=== PATIENT | female | born 1965 | race African-American/Black ===

== ENCOUNTER 2023-12-23 11:12 | Inpatient (IN) | payer SELFPAY ==
[2023-12-23 17:25] VITALS: BMI 43.5
[2023-12-23] MEDS ORDERED: Calcium Carbonate 500 MG ChewTAB PO PRN (17:27)
[2023-12-23] MEDS ORDERED: Acetaminophen 325 MG TAB PO PRN (17:27)
[2023-12-23] MEDS ORDERED: Ondansetron PF 4 MG/2 ML Vial IVP PRN (17:27)
[2023-12-23] MEDS ORDERED: Ondansetron ODT 4 MG TAB PO PRN (17:27)
[2023-12-23 19:43] LABS: Anion Gap 8 mmol/L (10-20); BUN (Urea Nitrogen) 17 mg/dL (9.8-20.1); Calc. Creatinine Clearance 97 mL/min (70-130); Calcium 9.4 mg/dL (7.8-10.44); Carbon Dioxide 23 mmol/L (22-29); Chloride 104 mmol/L (98-107); Estimated GFR 57; Glucose 153 mg/dL (70-105); Magnesium 1.5 mg/dL (1.6-2.6); Potassium 3.2 mmol/L (3.5-5.1); Sodium 132 mmol/L (136-145)
[2023-12-23] MEDS ORDERED: NS 0.9% w/ 20 MEQ KCL 1,000 ML/1,000 ML BAG IV SCH (19:45)
[2023-12-23 19:51] LABS: Troponin I Less than 0.010 ng/mL (< 0.028)
[2023-12-23] MEDS ORDERED: Electrolyte Replacement Protocol 1 EACH FS SCH (20:15)
[2023-12-23] MEDS ORDERED: Dextrose 50% Abboject 50 ML SYRINGE SLOW IVP PRN (20:17)
[2023-12-23] MEDS ORDERED: Glucagon 1 MG/ML KIT IM PRN (20:17)
[2023-12-23] MEDS ORDERED: Insulin Regular, Human 100 UNIT/ML 10 ML VIAL SC PRN (20:17)
[2023-12-23] MEDS ORDERED: Dextrose 5% in Water 1,000 ML IV PRN (20:17)
[2023-12-23] MEDS: Famotidine 20 MG TAB PO SCH (21:02)
[2023-12-23] MEDS: Atorvastatin Calcium 40 MG TAB PO SCH (21:02)
[2023-12-23] MEDS: Potassium Chloride 20 MEQ TAB PO SCH (21:02)
[2023-12-23] MEDS: Magnesium 2 GM/50 ML(in water) 2 GM in Premix 1 BAG IVPB SCH (21:03)
[2023-12-24 05:09] LABS: Troponin I Less than 0.010 ng/mL (< 0.028)
[2023-12-24 05:55] LABS: Anion Gap 15 mmol/L (10-20); BUN (Urea Nitrogen) 20 mg/dL (9.8-20.1); Calc. Creatinine Clearance 119 mL/min (70-130); Calcium 8.8 mg/dL (7.8-10.44); Carbon Dioxide 22 mmol/L (22-29); Cardiac Risk 4.1 (Less than 4.5); Chloride 107 mmol/L (98-107); Cholesterol 132 mg/dl (< 200 Desired); Estimated GFR 72; Glucose 149 mg/dL (70-105); HDL Cholesterol 32 mg/dL (>60 Neg Risk); Hemoglobin A1c 6.3 % (4.0-6.0); LDL Cholesterol, Calculated 71 mg/dL; Magnesium 1.7 mg/dL (1.6-2.6); Potassium 4.2 mmol/L (3.5-5.1); Sodium 140 mmol/L (136-145); Triglycerides 147 mg/dL (Less than 150)
[2023-12-24] MEDS: Metoprolol Tartrate 25 MG TAB PO SCH (08:37)
[2023-12-24] MEDS: Magnesium 2 GM/50 ML(in water) 2 GM in Premix 1 BAG IVPB SCH (08:37)
[2023-12-24] MEDS: Aspirin 81 mg Enteric Coated Tablet PO SCH (08:37)
[2023-12-24] MEDS: Enoxaparin 40 MG (0.4 mL) SYRINGE SC SCH (08:38)
[2023-12-25] MEDS: hydrALAZINE 20 MG/ML VIAL SLOW IVP SCH (05:09)
[2023-12-25] MEDS: Insulin Regular, Human 100 UNIT/ML 10 ML VIAL SC PRN (11:03)
[2023-12-26] MEDS: hydrALAZINE 20 MG/ML VIAL SLOW IVP PRN (01:15)
[2023-12-26 11:49] VITALS: BP 167/81; TEMP 98.2
== END 2023-12-26 15:20 | disposition home or self-care (01) | DRG 69 ==
LOC: 2SE 11:12 → OBSVTOIN 12-26 08:49
PROVIDERS: ADMIT Internal Medicine; ATTEND Internal Medicine
DX: G45.9 Transient cerebral ischemic attack, unspecified (principal); E87.1 Hypo-osmolality and hyponatremia; R47.81 Slurred speech; I10 Essential (primary) hypertension; E11.9 Type 2 diabetes mellitus without complications; F17.210 Nicotine dependence, cigarettes, uncomplicated; I47.9 Paroxysmal tachycardia, unspecified; E83.42 Hypomagnesemia; E78.00 Pure hypercholesterolemia, unspecified; H74.8X1 Other specified disorders of right middle ear and mastoid; R53.1 Weakness; G47.33 Obstructive sleep apnea (adult) (pediatric); Z79.4 Long term (current) use of insulin; Z79.82 Long term (current) use of aspirin
CPT/HCPCS: 36415; 36416; 70551; 80048; 80061; 83036; 83735; 84100; 84484; 93005; 93010; 93306; 96372; 96374; 96375; 96376; G0378; J0360; J1650; J1815; J3475